=== PATIENT | male | born 1960 | race Caucasian/White ===

== ENCOUNTER 2017-09-11 17:28 | Inpatient (IN) | payer SELFPAY ==
[~2017-09-11] VITALS: Ht 167.6 cm; Wt 80.0 kg
[2017-09-11 17:28] VITALS: O2SAT 98
[2017-09-11] MEDS ORDERED: ONDANSETRON HCL 4 MG/2 ML VIAL ONE (17:32)
[2017-09-11] MEDS ORDERED: MORPHINE SULFATE 4 MG/ML INJ ONE ×2 (17:32→17:57)
[2017-09-11 17:56] LABS: AUTOMATED NEUTROPHIL # 6.8 TH/MM3 (1.8-7.7); BASOPHIL % 0.4 % (0.0-2.0); EOSINOPHIL % 0.4 % (0.0-4.0); HEMATOCRIT 42.3 % (39.0-51.0); HEMOGLOBIN 14.5 GM/DL (13.0-17.0); LYMPH % 33.4 % (9.0-44.0); LYMPHOCYTE # 3.8 TH/MM3 (1.0-4.8); MEAN CELL VOLUME 93.9 FL (80.0-100.0); MEAN CORPUSCULAR HEMOGLOBIN 32.2 PG (27.0-34.0); MEAN CORPUSCULAR HGB CONC 34.3 % (32.0-36.0); MEAN PLATELET VOLUME 8.6 FL (7.0-11.0); MONOCYTE # 0.7 TH/MM3 (0-0.9); NEUT % 59.8 % (16.0-70.0); PLATELET COUNT 256 TH/MM3 (150-450); RED BLOOD COUNT 4.51 MIL/MM3 (4.50-5.90); RED CELL DISTRIBUTION WIDTH 12.8 % (11.6-17.2); WHITE BLOOD COUNT 11.3 TH/MM3 (4.0-11.0)
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
[2017-09-11] MEDS ORDERED: IOHEXOL 350 MG/ML 10 ML VIAL (for RAD DIAG) IVCONTRAST ONE (18:05)
[2017-09-11 18:08] LABS: INTERNATIONAL NORMALIZED RATIO 1.1 RATIO; PROTHROMBIN TIME - PATIENT 10.7 SEC (9.8-11.6)
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
[2017-09-11 18:45] VITALS: BP 137/82; PULSE 88; RESP 20; O2SAT 98
[2017-09-11 20:30] VITALS: BP 127/77; PULSE 89; RESP 18; TEMP 98.5; O2SAT 97
[2017-09-11] MEDS ORDERED: ENALAPRILAT 1.25 MG/ML VIAL IV PUSH PRN (21:30)
[2017-09-11] MEDS ORDERED: MORPHINE SULFATE 4 MG/ML INJ IV PUSH PRN (21:30)
[2017-09-11] MEDS ORDERED: SODIUM CHLORIDE 0.9% FLUSH 10 ML FLUSH IV FLUSH PRN (21:30)
[2017-09-11] MEDS ORDERED: MAGN30S PO (22:06)
[2017-09-11] MEDS ORDERED: PERI PO (22:06)
[2017-09-11] MEDS: SODIUM CHLOR 0.9% 1000 ML INJ 1,000 ML IV SCH (22:45)
[2017-09-11] MEDS ORDERED: POVIDONE IODINE 5% (ANTISEPSIS KIT) 4 APPLICATIONS EACH NARE PRN (23:45)
[2017-09-11] MEDS ORDERED: CHLORHEXIDINE GLUCONATE 2 % 1 PACK (2 CLOTHS) TOPICAL PRN (23:45)
[2017-09-11] MEDS ORDERED: LACTATED RINGER'S 1000 ML IV PRN (23:45)
[2017-09-11] MEDS ORDERED: SODIUM CHLORID 0.9% 500 ML IV PRN (23:45)
[2017-09-12 00:01] VITALS: BP 153/79; PULSE 73; RESP 17; TEMP 98.1; O2SAT 96
[2017-09-12 04:00] VITALS: BP 103/59; PULSE 79; RESP 18; TEMP 98.3; O2SAT 96
[2017-09-12] MEDS: ONDANSETRON HCL 4 MG/2 ML VIAL IV PUSH PRN ×2 (04:34→16:06)
[2017-09-12 04:46] LABS: AUTOMATED NEUTROPHIL # 9.9 TH/MM3 (1.8-7.7); BASOPHIL % 0.1 % (0.0-2.0); HEMATOCRIT 40.1 % (39.0-51.0); HEMOGLOBIN 13.5 GM/DL (13.0-17.0); LYMPH % 10.4 % (9.0-44.0); LYMPHOCYTE # 1.2 TH/MM3 (1.0-4.8); MEAN CELL VOLUME 93.4 FL (80.0-100.0); MEAN CORPUSCULAR HEMOGLOBIN 31.5 PG (27.0-34.0); MEAN CORPUSCULAR HGB CONC 33.8 % (32.0-36.0); MEAN PLATELET VOLUME 8.6 FL (7.0-11.0); MONO % 6.5 % (0.0-8.0); MONOCYTE # 0.8 TH/MM3 (0-0.9); PLATELET COUNT 223 TH/MM3 (150-450); RED BLOOD COUNT 4.29 MIL/MM3 (4.50-5.90); RED CELL DISTRIBUTION WIDTH 12.9 % (11.6-17.2)
[2017-09-12 05:15] LABS: BICARBONATE 25.8 MEQ/L (21.0-32.0); CREATININE 0.9 MG/DL (0.60-1.30)
[2017-09-12] MEDS: SODIUM CHLOR 0.9% 1000 ML INJ 1,000 ML IV SCH ×2 (07:20→13:02)
[2017-09-12] MEDS ORDERED: VANCOMYCIN HCL 1000 MG VIAL ONE ×2 (07:22→09:45)
[2017-09-12] MEDS ORDERED: GENTAMICIN SULFATE 80 MG/2 ML VIAL ONE ×2 (07:23→09:43)
[2017-09-12] MEDS ORDERED: ceFAZolin 2 GM PREMIX 50 ML ONE ×2 (07:23→09:43)
[2017-09-12] MEDS: DOCUSATE SODIUM 50 MG/SENNA 8.6 MG TAB PO SCH ×2 (08:02→20:29)
[2017-09-12] MEDS: FAMOTIDINE 20 MG TAB PO SCH ×2 (08:02→20:29)
[2017-09-12] MEDS: MAGNESIUM HYDROXIDE SUSP 30 ML CUP PO SCH ×2 (08:02→20:29)
[2017-09-12] MEDS: SODIUM CHLORIDE FLUSH BID IV FLUSH SCH ×2 (08:09→20:29)
[2017-09-12 08:22] VITALS: BP_SYST 131; PULSE 75; RESP 18; TEMP 98; O2SAT 95
[2017-09-12] MEDS ORDERED: BUPIVACAINE/EPINEPHRINE 0.5% PF 10 ML VIAL ONE (09:43)
[2017-09-12] MEDS ORDERED: SODIUM CHLOR 0.9% 250 ML INJ 250 ML ONE (09:45)
--- NOTE | 2017-09-12 10:56 | PD.OP ---
cc: Jamal Queen MD Operative Report Date of Surgery: September 12, 2017 Preoperative Diagnosis: Displaced left hip intertrochanteric fracture Postoperative Diagnosis: Procedure: Left hip reduction and internal fixation Anesthesia: General Surgeon: Jamal Queen Social Worker Health Services(s): Nas Reyes PA-C The surgical procedure was assisted by my physician drilling assistant. My P.A. presence was necessary throughout this case for the manipulation and positioning of the surgical extremity. My P.A. was assisting me throughout the duration of this procedure. The skill set of a physician drilling assistant was medically necessary to complete this procedure. During the surgical case the surgical device sales representative was working at the back table and the physician drilling assistant was directly assisting me. Operation and Findings: Implants used: Biomet 11 mm x [360]mm troch nail Plan of activity: 50% weightbearing 4 weeks, then full weightbearing Patient was seen and evaluated preoperatively. The patient has significant hip pain from proximal femur fracture. The risk and benefits of surgery were discussed in depth with the patient to include bleeding, infection, nonunion, malunion, need for hip replacement, painful hardware, as well as medical competitions including blood clots, stroke, heart attack, and . Informed consent was obtained. Operative site was marked. Patient was brought to the operating room and placed on fracture table. IV sedation was administered by anesthesiologist. Timeout procedure was performed. Hip and leg were prepped with alcohol followed by DuraPrep and draped in the usual sterile fashion. IV antibiotics were given prior to incision. Procedure began with reduction of fracture. Traction was applied. The leg was manipulated to achieve reduction. Excellent reduction was achieved. Fluoroscopy was used to confirm reduction. A three inch incision was made proximal to the trochanter. Subcutaneous tissue was dissected bluntly. Guidepin was placed at the tip of the trochanter and advanced into the femoral canal. Fluoroscopy confirmed appropriate guidepin placement. A opening reamer was placed over the guidepin. A long ball tipped guide pin was now placed down the femoral canal into the center of the distal femur. The nail length was now measured. Fluoroscopy confirmed appropriate guidepin placement. Flexible reamers were now passed over the guidepin to ream the intramedullary canal. The nail was attached to the insertion handle. Nail was now placed over the guidepin into the femoral canal. Fluoroscopy confirmed appropriate nail placement. A second incision was made over the lateral thigh. Cannulas were placed through the insertion handle down to the femur. Guidepin was now placed through the femoral nail into the center of the femoral head. Fluoroscopy confirmed appropriate guidepin placement. Screw length was measured. Cannulated drill was placed over the guidepin. Appropriate length lag screw was now placed. Traction was released and compression was applied. The set screw was now tightened in dynamic mode. Next, using perfect [place] technique two distal interlocking screws were placed. Screw holes were predrilled and screw lengths were measured. Final fluoroscopy revealed well aligned fracture with well-placed hardware. Incision was closed with 3-0 Vicryl and kelsey. Sterile dressings were applied. Patient was awakened and transferred to recovery room. Jamal Queen MD September 12, 2017 10:56
[2017-09-12] MEDS ORDERED: ERGOCALCIFEROL (VIT D2) 50,000 UNIT CAP PO ONE (11:00)
[2017-09-12] MEDS ORDERED: diphenhydrAMINE HCL 25 MG CAP PO PRN (11:00)
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
[2017-09-12] MEDS ORDERED: MORPHINE SULFATE 4 MG/ML INJ ONE (11:26)
[2017-09-12] MEDS ORDERED: *morphine SULFATE 4 MG/ML PERIprocedure ONLY ONE ×2 (11:41→11:56)
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
[2017-09-12] MEDS ORDERED: DO NOT ADM ANY ANTICOAGULANT DRUGS PRN (12:00)
[2017-09-12] MEDS ORDERED: *HYDROmorphone PF 0.5 MG/0.5 ML PERIprocedure ONLY ONE (12:01)
--- NOTE | 2017-09-12 12:04 | RADRPT ---
EXAM DATE/TIME: 09/12/2017 10:47 [facility] COMPARISON: FEMUR LEFT (1 VW), September 11, 2017, 17:19. INDICATIONS : Surgical repair, intertrochanteric nail placement. MEDICAL HISTORY : None. SURGICAL HISTORY : None. ENCOUNTER: Initial ACUITY: 1 day PAIN SCORE: Non-responsive. LOCATION: Left femur. FINDINGS: 4 spot fluoroscopic images obtained in the operating room during a procedure demonstrates placement o f an antegrade intramedullary ramu with a proximal femoral head and neck screw and 2 distal interlocki ng screws. CONCLUSION: Spot images of the left femur, as above. Lucas Tomas MD on September 12, 2017 at 12:01 Board Certified Radiologist. This report was verified electronically.
--- NOTE | 2017-09-12 12:08 | EKG ---
Date Performed: 09/12/2017 Time Performed: 05:33:06 PTAGE: 89 years EKG: Sinus rhythm . Inferior T wave changes are nonspecific Borderline ECG NO PREVIOUS TRACING DOCTOR: Kel Thompson Interpretating Date/Time 09/12/2017 12:06:52
[2017-09-12 13:00] VITALS: BP 128/73; PULSE 85; RESP 18; TEMP 98.3; O2SAT 99
[2017-09-12] MEDS: CALCIUM/VITAMIN D 250 MG/125 U TAB PO SCH ×2 (13:01→16:08)
[2017-09-12 16:04] VITALS: BP 148/76; PULSE 84; RESP 18; TEMP 97.6; O2SAT 98
[2017-09-12 20:00] VITALS: BP 148/74; PULSE 79; RESP 20; TEMP 98.8; O2SAT 96
[2017-09-13] VITALS: BP 141/74; PULSE 76; RESP 20; TEMP 98.8; O2SAT 96
[2017-09-13] MEDS: SODIUM CHLOR 0.9% 1000 ML INJ 1,000 ML IV SCH (02:25)
[2017-09-13 04:00] VITALS: BP 144/64; PULSE 75; RESP 19; TEMP 98.1; O2SAT 43
[2017-09-13] MEDS: ONDANSETRON HCL 4 MG/2 ML VIAL IV PUSH PRN (05:57)
[2017-09-13 06:23] LABS: HEMATOCRIT 33.8 % (39.0-51.0); HEMOGLOBIN 11.7 GM/DL (13.0-17.0)
--- NOTE | 2017-09-13 06:44 | HHI.FF ---
Face to Face Verification Diagnosis: (1) Femur fracture, left Physical Therapy Gait training Hip: Hip fracture, Protocol: Left Left LE Weight Bearing: Partial WB 50% Nursing Dressing Changes: Daily dressing change, Xeroform, Coverderm/Primapore I have seen patient Lucas [id number] on 09/13/17. My clinical findings support the need for the requested home health care services because: Ltd mobility - disease progression I certify that my clinical findings support that this patient is homebound because: Post-op weakness Nas Reyes/Field Marketing Specialist MELISSA September 13, 2017 06:44
[2017-09-13] MEDS ORDERED: WALKER WHEELS/F1 MIS (07:43)
[2017-09-13] MEDS ORDERED: WHEEMIS3 (07:43)
[2017-09-13 07:54] VITALS: BP 123/62; PULSE 76; RESP 18; TEMP 98.3; O2SAT 97
[2017-09-13] MEDS: CHOLECALCIFEROL (VIT D3) 5000 UNIT CAP PO SCH (10:09)
[2017-09-13] MEDS: CALCIUM/VITAMIN D 250 MG/125 U TAB PO SCH ×3 (10:09→18:49)
[2017-09-13] MEDS: FAMOTIDINE 20 MG TAB PO SCH ×2 (10:10→20:26)
[2017-09-13] MEDS: MAGNESIUM HYDROXIDE SUSP 30 ML CUP PO SCH ×2 (10:10→20:26)
[2017-09-13] MEDS: SODIUM CHLORIDE FLUSH BID IV FLUSH SCH ×2 (10:10→20:26)
[2017-09-13] MEDS: DOCUSATE SODIUM 50 MG/SENNA 8.6 MG TAB PO SCH ×2 (10:10→20:26)
[2017-09-13] MEDS: ENOXAPARIN SODIUM 30 MG/0.3 ML SYRINGE SQ SCH (10:11)
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
[2017-09-13 12:28] VITALS: BP 146/80; PULSE 69; RESP 18; TEMP 98.3; O2SAT 96
--- NOTE | 2017-09-13 13:34 | PD.CONS ---
HPI Consult Requested By Primary Care Physician Unknown Past Family Social History Allergies: Coded Allergies: No Known Allergies (Unverified , 09/11/17) Physical Exam Vital Signs Vital Signs Date Time Temp Pulse Resp B/P (MAP) Pulse Ox O2 Delivery O2 Flow Rate FiO2 09/13/17 12:28 98.3 69 18 146/80 (102) 96 09/13/17 07:54 98.3 76 18 123/62 (82) 97 09/13/17 06:32 18 09/13/17 04:00 98.1 75 19 144/64 (90) 43 09/13/17 00:00 98.8 76 20 141/74 (96) 96 09/12/17 23:08 Room Air 09/12/17 20:00 98.8 79 20 148/74 (98) 96 09/12/17 16:04 97.6 84 18 148/76 (100) 98 Laboratory Laboratory Tests Test 09/13/17 05:30 Hemoglobin 11.7 Hematocrit 33.8 Result Diagram: 09/13/17 0530 09/12/17 0406 Attending Statement Last 48 hours Impressions Femur X-Ray 09/12/17 0000 Signed Impressions: Service Date/Time: Tuesday, September 12, 2017 10:47 - CONCLUSION: Spot images of the left femur, as above. Lucas Tomas MD Pelvis X-Ray 09/11/17 1733 Signed Impressions: Service Date/Time: Monday, September 11, 2017 17:19 - CONCLUSION: Proximal left femur fracture. Elmer Aceves MD Maxillofacial CT 09/11/17 645 Signed Impressions: Service Date/Time: Monday, September 11, 2017 17:39 - CONCLUSION: 1. Acute fractures involving the bilateral nasal bones. 2. Mild nasoseptal deviation to the left with nasoseptal spur protruding into the left nasal cavity. 3. Minimal mucosal thickening within right maxillary sinus. Usama Mac MD Head CT 09/11/17 1736 Signed Impressions: Service Date/Time: Monday, September 11, 2017 17:39 - CONCLUSION: No acute intracranial findings. Age indeterminate distal nasal bone fracture. Elmer Aceves MD Chest X-Ray 09/11/171732 Signed Impressions: Service Date/Time: Monday, September 11, 2017 17:19 - CONCLUSION: No acute cardiopulmonary disease identified. Elmer Aceves MD Chest CT 09/11/171732 Signed Impressions: Service Date/Time: Monday, September 11, 2017 17:39 - CONCLUSION: 1. Scattered ground-glass densities suggesting atelectasis or possible mild contusions. 2. Minimal posterior apical thickening bilaterally. 3. Minimal bullous change within the right lower lobe posterior medially. 4. 14 mm left lobe hepatic cyst. Usama Mac MD Cervical Spine CT 09/11/171732 Signed Impressions: Service Date/Time: Monday, September 11, 2017 17:39 - CONCLUSION: 1. Acute fracture involving the right transverse process of C7. 2. Degenerative changes throughout the cervical spine. 3. Mild bilateral foraminal narrowing from C3 through T1. Usama Mac MD Abdomen/Pelvis CT 09/11/171732 Signed Impressions: Service Date/Time: Monday, September 11, 2017 17:39 - CONCLUSION: 1. Acute displaced intertrochanteric/subtrochanteric fracture of the left proximal femur. 2. Cysts within the liver and left kidney. Usama Mac MD Point Value = 1 Point Value = 2 Point Value = 3 Point Value = 5 Age 41-60 Minor surgery BMI > 25 kg/m2 Swollen legs Varicose veins or History of unexplained or recurrent spontaneous Oral contraceptives or hormone replacement Sepsis (< 1 month) Serious lung disease, including pneumonia (< 1 month) Abnormal pulmonary function Acute myocardial infarction Congestive heart failure (< 1 month) History of inflammatory bowel disease Medical patient at bed rest Age 61-74 Arthroscopic surgery Major open surgery (> 45 min) Laparoscopic surgery (> 45 min) Malignancy Confined to bed (> 72 hours) Immobilizing plaster cast Central venous access Age >= 75 History of VTE Family history of VTE Factor V Leiden Prothrombin [id number] Lupus anticoagulant Anticardiolipin antibodies Elevated serum homocysteine Heparin-induced thrombocytopenia Other congenital or acquired thrombophilia Stroke (< 1 month) Elective arthroplasty Hip, pelvis, or leg fracture Acute spinal cord injury (< 1 month) Yimi Ulrich MD September 13, 2017 13:34
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
[2017-09-13 17:03] VITALS: BP 134/72; PULSE 80; RESP 18; TEMP 97.7; O2SAT 97
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
[2017-09-13 20:05] VITALS: BP 143/77; PULSE 80; RESP 17; TEMP 99.5; O2SAT 96
[2017-09-14 01:05] VITALS: BP 123/77; PULSE 71; RESP 17; TEMP 98.7; O2SAT 96
--- NOTE | 2017-09-14 06:46 | PD.ORT.PN ---
Subjective Subjective Remarks POD 2 s/p left hip IMN patient report bilateral shoulder soreness, but improving states out of bed to chair yesterday Objective Vitals Vital Signs Date Time Temp Pulse Resp B/P (MAP) Pulse Ox O2 Delivery O2 Flow Rate FiO2 09/14/17 04:49 18 09/14/17 01:05 98.7 71 17 123/77 (92) 96 09/13/17 22:35 Room Air 09/13/17 20:05 99.5 80 17 143/77 (99) 96 09/13/17 17:03 97.7 80 18 134/72 (92) 97 09/13/17 12:28 98.3 69 18 146/80 (102) 96 09/13/17 07:54 98.3 76 18 123/62 (82) 97 I/O 09/13/17 09/13/17 09/13/17 09/14/17 09/14/17 09/14/17 07:00 15:00 23:00 07:00 15:00 23:00 Intake Total 1300 ml 920 ml 720 ml Output Total 975 ml Balance 325 ml 920 ml 720 ml Intake Oral 1200 ml 920 ml 720 ml IV Total 100 ml Output Urine Total 975 ml # Voids 3 2 # Bowel Movements 0 0 Result Diagram: 09/13/17 0530 09/12/17 0406 Objective Remarks LLE: dressings clean and dry. intact. NVI BUE: soreness with motion. nvi distally. no gross deformity Assessment & Plan Assessment and Plan 1) Left Intertroch Fx s/p IMN - POD 2 -50%WB -daily dressing changes -work with PT -CM for HHC -ortho clear for DC home -f/u with Astrid or Pa in 2 weeks 2) Bilateral Shoulder Pain -XR normal. -no acute fx seen -WBAT -no restrictions Nas Reyes/[employer] MELISSA September 14, 2017 06:46
[2017-09-14 08:00] VITALS: BP 133/82; PULSE 72; RESP 18; TEMP 98; O2SAT 96
[2017-09-14] MEDS: MAGNESIUM HYDROXIDE SUSP 30 ML CUP PO SCH ×2 (08:46→21:00)
[2017-09-14] MEDS: CHOLECALCIFEROL (VIT D3) 5000 UNIT CAP PO SCH (08:46)
[2017-09-14] MEDS: FAMOTIDINE 20 MG TAB PO SCH ×2 (08:46→21:15)
[2017-09-14] MEDS: DOCUSATE SODIUM 50 MG/SENNA 8.6 MG TAB PO SCH ×2 (08:46→21:00)
[2017-09-14] MEDS: CALCIUM/VITAMIN D 250 MG/125 U TAB PO SCH ×3 (08:46→16:48)
[2017-09-14] MEDS: SODIUM CHLORIDE FLUSH BID IV FLUSH SCH ×2 (08:47→21:00)
[2017-09-14] MEDS: ENOXAPARIN SODIUM 30 MG/0.3 ML SYRINGE SQ SCH (08:56)
[2017-09-14 12:00] VITALS: BP 122/79; PULSE 75; RESP 18; TEMP 98.2; O2SAT 96
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
[2017-09-14] MEDS ORDERED: LACTULOSE SYRUP 20 GM/30 ML CUP PO SCH (14:30)
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
--- NOTE | 2017-09-14 15:51 | HHI.NSPN ---
Note Status Status: Progress Note Interval History Interval History 09/14: pt evaluated this am during rounds, doing ok, stable cervical pain, no new neurological complaints Labs, Micro, & Vital Signs Results Date Time Temp Pulse Resp B/P (MAP) Pulse Ox O2 Delivery O2 Flow Rate FiO2 09/14/17 12:00 98.2 75 18 122/79 (93) 96 09/14/17 08:00 98.0 72 18 133/82 (99) 96 09/14/17 04:49 18 09/14/17 01:05 98.7 71 17 123/77 (92) 96 09/13/17 22:35 Room Air 09/13/17 20:05 99.5 80 17 143/77 (99) 96 09/13/17 17:03 97.7 80 18 134/72 (92) 97 Constitutional Vital Signs Date Time Temp Pulse Resp B/P (MAP) Pulse Ox O2 Delivery O2 Flow Rate FiO2 09/14/17 12:00 98.2 75 18 122/79 (93) 96 09/14/17 08:00 98.0 72 18 133/82 (99) 96 09/14/17 04:49 18 09/14/17 01:05 98.7 71 17 123/77 (92) 96 09/13/17 22:35 Room Air 09/13/17 20:05 99.5 80 17 143/77 (99) 96 09/13/17 17:03 97.7 80 18 134/72 (92) 97 Review of Systems Musculoskeletal: COMPLAINS OF: Neck pain Physical Exam General: Resting in bed in NAD. HEENT: Normocephalic. Gross hearing intact bilaterally. Nonicteric sclera. Neck: immobilized by cervical collar Neuro: Awake, alert and oriented to person, place, and time. Speech is clear and fluent. Cranial nerve examination: pupils equal. Facial motor appears symmetrical. Gross hearing is intact, bilaterally, to finger rub. Medications Current Medications Current Medications Medications (Trade) Dose Ordered Sig/Bryant Route PRN Reason Start Time Stop Time Status Last Admin Dose Admin Oxycodone HCl (Roxicodone) 5 mg Q4H PRN PO PAIN SCALE 1 TO 5 09/11/17 20:30 Oxycodone HCl (Roxicodone) 10 mg Q4H PRN PO PAIN SCALE 6 TO 10 09/11/17 20:30 09/14/17 12:55 Sodium Chloride (NS Flush) 2 ml UNSCH PRN IV FLUSH FLUSH AFTER USING IV ACCESS 09/11/17 21:30 09/12/17 13:01 Morphine Sulfate (Morphine Inj) 2 mg Q3H PRN IV PUSH BREAKTHROUGH PAIN 09/11/17 21:30 Enalaprilat (Vasotec Inj) 1.25 mg Q8H PRN IV PUSH SBP>180, DBP>95 09/11/17 21:30 Ondansetron HCl (Zofran Inj) 4 mg Q6H PRN IV PUSH NAUSEA OR VOMITING 09/11/17 21:30 09/13/17 05:57 Famotidine (Pepcid) 20 mg BID PO 09/12/17 09:00 09/14/17 08:46 Senna/Docusate Sodium (Elizabeth-Colace) 1 tab BID PO 09/12/17 09:00 09/14/17 08:46 Magnesium Hydroxide (Milk Of Magnesia Liq) 30 ml BID PO 09/12/17 09:00 09/14/17 08:46 Sodium Chloride (NS Flush) 2 ml BID IV FLUSH 09/12/17 09:00 09/14/17 08:47 Povidone Iodine (Betadine 5% Antisepsis Kit) 1 applic MOLD LAMINATOR PRN EACH NARE SEE LABEL COMMENTS 09/11/17 23:45 09/14/17 23:44 Enoxaparin Sodium (Lovenox Inj) 30 mg Q24H SQ 09/13/17 10:00 09/14/17 08:56 Calcium/Vitamin D (Oscal-D 250-125) 250 mg TID PO 09/12/17 13:00 09/14/17 12:55 Diphenhydramine HCl (Benadryl) 25 mg Q6H PRN PO ITCHING 09/12/17 11:00 Cholecalciferol (Vitamin D3) 5,000 units DAILY PO 09/13/17 09:00 09/14/17 08:46 Lactulose (Lactulose Liq) 30 ml DAILY PO 09/14/17 14:30 Medical Decision Making MDM Remarks C7 right transverse process fracture stable flexion/extension xrays of the cervical spine Plan Plan Remarks cont nonop mgt, cervical collar for comfort Val Ernandez September 14, 2017 15:51
[2017-09-14 16:00] VITALS: BP 132/76; PULSE 85; RESP 18; TEMP 99.5; O2SAT 97
[2017-09-14 20:55] VITALS: BP 123/75; PULSE 77; RESP 16; TEMP 98.8; O2SAT 97
[2017-09-15 00:05] VITALS: BP 128/72; PULSE 70; RESP 16; TEMP 98.3; O2SAT 96
[2017-09-15] MEDS ORDERED: MAGNESIUM CITRATE SOLN 300 ML BTL PO ONE (07:45)
[2017-09-15 08:00] VITALS: BP 119/70; PULSE 66; RESP 18; TEMP 98.6; O2SAT 98
[2017-09-15] MEDS: CHOLECALCIFEROL (VIT D3) 5000 UNIT CAP PO SCH (09:19)
[2017-09-15] MEDS: FAMOTIDINE 20 MG TAB PO SCH (09:19)
[2017-09-15] MEDS: DOCUSATE SODIUM 50 MG/SENNA 8.6 MG TAB PO SCH (09:20)
[2017-09-15] MEDS: ENOXAPARIN SODIUM 30 MG/0.3 ML SYRINGE SQ SCH (09:21)
[2017-09-15] MEDS: CALCIUM/VITAMIN D 250 MG/125 U TAB PO SCH (09:21)
--- NOTE | 2017-09-15 10:16 | HHI.NSPN ---
Note Status Status: Progress Note Interval History Interval History 09/14: pt evaluated this am during rounds, doing ok, stable cervical pain, no new neurological complaints 09/15: min cervical pain when laying still, requesting if he can loosen his collar while in bed. flexion/extension xrays c-spine completed. Labs, Micro, & Vital Signs Results Date Time Temp Pulse Resp B/P (MAP) Pulse Ox O2 Delivery O2 Flow Rate FiO2 09/15/17 08:00 98.6 66 18 119/70 (86) 98 09/15/17 00:05 98.3 70 16 128/72 (90) 96 09/14/17 20:55 98.8 77 16 123/75 (91) 97 09/14/17 16:00 99.5 85 18 132/76 (94) 97 09/14/17 12:00 98.2 75 18 122/79 (93) 96 Constitutional Vital Signs Date Time Temp Pulse Resp B/P (MAP) Pulse Ox O2 Delivery O2 Flow Rate FiO2 09/15/17 08:00 98.6 66 18 119/70 (86) 98 09/15/17 00:05 98.3 70 16 128/72 (90) 96 09/14/17 20:55 98.8 77 16 123/75 (91) 97 09/14/17 16:00 99.5 85 18 132/76 (94) 97 09/14/17 12:00 98.2 75 18 122/79 (93) 96 Physical Exam General: Resting in bed in NAD. HEENT: Normocephalic. Gross hearing intact bilaterally. Nonicteric sclera. Neck: immobilized by cervical collar Neuro: Awake, alert and oriented to person, place, and time. Speech is clear and fluent. Cranial nerve examination: pupils equal. Facial motor appears symmetrical. Gross hearing is intact, bilaterally, to finger rub. Medications Current Medications Current Medications Medications (Trade) Dose Ordered Sig/Bryant Route PRN Reason Start Time Stop Time Status Last Admin Dose Admin Oxycodone HCl (Roxicodone) 5 mg Q4H PRN PO PAIN SCALE 1 TO 5 09/11/17 20:30 Oxycodone HCl (Roxicodone) 10 mg Q4H PRN PO PAIN SCALE 6 TO 10 09/11/17 20:30 09/15/17 09:20 Sodium Chloride (NS Flush) 2 ml UNSCH PRN IV FLUSH FLUSH AFTER USING IV ACCESS 09/11/17 21:30 09/12/17 13:01 Morphine Sulfate (Morphine Inj) 2 mg Q3H PRN IV PUSH BREAKTHROUGH PAIN 09/11/17 21:30 Enalaprilat (Vasotec Inj) 1.25 mg Q8H PRN IV PUSH SBP>180, DBP>95 09/11/17 21:30 Ondansetron HCl (Zofran Inj) 4 mg Q6H PRN IV PUSH NAUSEA OR VOMITING 09/11/17 21:30 09/13/17 05:57 Famotidine (Pepcid) 20 mg BID PO 09/12/17 09:00 09/15/17 09:19 Senna/Docusate Sodium (Elizabeth-Colace) 1 tab BID PO 09/12/17 09:00 09/15/17 09:20 Magnesium Hydroxide (Milk Of Magnesia Liq) 30 ml BID PO 09/12/17 09:00 09/14/17 08:46 Sodium Chloride (NS Flush) 2 ml BID IV FLUSH 09/12/17 09:00 09/14/17 21:00 Enoxaparin Sodium (Lovenox Inj) 30 mg Q24H SQ 09/13/17 10:00 09/15/17 09:21 Calcium/Vitamin D (Oscal-D 250-125) 250 mg TID PO 09/12/17 13:00 09/15/17 09:21 Diphenhydramine HCl (Benadryl) 25 mg Q6H PRN PO ITCHING 09/12/17 11:00 Cholecalciferol (Vitamin D3) 5,000 units DAILY PO 09/13/17 09:00 09/15/17 09:19 Lactulose (Lactulose Liq) 30 ml DAILY PO 09/14/17 14:30 09/14/17 16:48 Medical Decision Making MDM Remarks C7 right transverse process fracture stable flexion/extension xrays of the cervical spine Plan Plan Remarks CT and flex/ex xr of cervical spine again reviewed by Dr. Ulrich, cont nonop mgt per Dr. Ulrich - cervical collar for to wear for comfort clear for dc from NRS standpoint Val Ernandez September 15, 2017 10:16
[2017-09-15] MEDS ORDERED: PERC10TA27 PO (11:22)
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
[2017-09-15 12:00] VITALS: BP 136/79; PULSE 77; RESP 18; TEMP 98; O2SAT 96
== END 2017-09-15 14:45 | disposition home or self-care (01) | DRG 956 ==
LOC: NEPI 17:28 → EDBD 17:59 → NEDA 17:59 → N06A 20:24
PROVIDERS: ADMIT Surgery; ATTEND Surgery
PROC: 0QS706Z Reposition Left Upper Femur with Intramedullary Internal Fixation Device, Open Approach (ICD-10-PCS; principal; 2017-09-12 09:38)
DX: S72.142A Displaced intertrochanteric fracture of left femur, initial encounter for closed fracture (principal); S27.329A Contusion of lung, unspecified, initial encounter; S12.600A Unspecified displaced fracture of seventh cervical vertebra, initial encounter for closed fracture; S04.011A Injury of optic nerve, right eye, initial encounter; H43.11 Vitreous hemorrhage, right eye; J98.11 Atelectasis; S00.81XA Abrasion of other part of head, initial encounter; S30.810A Abrasion of lower back and pelvis, initial encounter; V28.4XXA Motorcycle driver injured in noncollision transport accident in traffic accident, initial encounter; Y93.89 Activity, other specified; S30.811A Abrasion of abdominal wall, initial encounter; Y92.411 Interstate highway as the place of occurrence of the external cause; K76.9 Liver disease, unspecified; M25.511 Pain in right shoulder; M25.512 Pain in left shoulder; H53.9 Unspecified visual disturbance
CPT/HCPCS: 70450; 70486; 71045; 71260; 72040; 72125; 72170; 73030; 73551; 73552; 74177; 76000; 80048; 82306; 85014; 85018; 85025; 85610; 85730; 86850; 86900; 86901; 93005; 94150; C1713; J0690; J1170; J1580; J1650; J2270; J2405; J3010; J3370; J7030; J7050; J7120; L0172; L1830; Q9967